=== PATIENT | female | born 1985 | race Asian ===

== ENCOUNTER 2020-12-05 15:55 | Emergency (ER) | payer SELFPAY ==
[~2020-12-05] VITALS: Ht 162.6 cm; Wt 66.0 kg
[2020-12-05] MEDS ORDERED: SODIUM CHLORIDE 0.9% 1,000 ML IV ONE (18:30)
[2020-12-05 19:04] LABS: *AMPHETAMINES SCREEN URINE NEGATIVE (NEGATIVE); *BARBITURATES SCREEN URINE NEGATIVE (NEGATIVE); OPIATES URINE SCREEN NEGATIVE (NEGATIVE); PHENCYCLIDINE URINE SCREEN NEGATIVE (NEGATIVE)
[2020-12-05 19:06] LABS: *BENZODIAZEPINES SCREEN URINE NEGATIVE (NEGATIVE); *COCAINE SCREEN URINE NEGATIVE (NEGATIVE); CANNABINOID URINE SCREEN NEGATIVE (NEGATIVE); METHADONE URINE SCREEN NEGATIVE (NEGATIVE)
[2020-12-05 19:17] LABS: BASOPHILS % 0.7 % (0.0-2.0); EOSINOPHILS % 0.5 % (0.0-5.0); HEMOGLOBIN. 12.8 g/dL (12.0-16.0); LYMPHOCYTES % 34.9 % (20.0-50.0); MEAN CORPUSCULAR VOLUME 89.4 fL (81.0-99.0); MONOCYTES % 4.5 % (2.0-8.0); NEUTROPHILS % 59.4 % (40.0-76.0); PLATELET 246 x1000/uL (130-400); RED BLOOD CELL COUNT 4.25 mill/uL (4.2-5.4); RED CELL DISTRIBUTION WIDTH 14.5 % (11.6-14.6)
[2020-12-05 19:24] LABS: CHLORIDE 110 mEq/L (98-107); HCG SCREEN NEGATIVE
[2020-12-05 19:38] LABS: ETHANOL BLOOD 353 mg/dL
[2020-12-05 20:00] VITALS: BP 116/74
== END 2020-12-05 20:45 | disposition home or self-care (01) ==
LOC: ER 15:55
DX: F10.129 Alcohol abuse with intoxication, unspecified (principal); Y90.8 Blood alcohol level of 240 mg/100 ml or more; Z59.0 Homelessness
CPT/HCPCS: 36415; 80053; 80305; 80320; 84703; 85025; 99283; J7030; Z7610; G0480

== ENCOUNTER 2022-04-02 18:13 | Emergency (ER) | payer BC ==
[~2022-04-02] VITALS: Ht 160 cm; Wt 63.0 kg
[2022-04-02] MEDS ORDERED: SODIUM CHLORIDE 0.9% 1,000 ML IV ONE (18:30)
[2022-04-02 19:03] LABS: BASOPHILS % 2.2 % (0.0-2.0); EOSINOPHILS % 6.4 % (0.0-5.0); HEMATOCRIT. 39.8 % (36.0-48.0); HEMOGLOBIN. 13.2 g/dL (12.0-16.0); LYMPHOCYTES % 46.2 % (20.0-50.0); MEAN CORPUSCULAR HEMOGLOBIN 29.7 pg (28.0-32.0); MEAN CORPUSCULAR VOLUME 89.7 fL (81.0-99.0); MEAN PLATELET VOLUME 8.2 fl (7.4-10.4); MONOCYTES % 10.9 % (2.0-8.0); NEUTROPHILS % 34.3 % (40.0-76.0); PLATELET 318 x1000/uL (130-400); RED BLOOD CELL COUNT 4.43 mill/uL (4.2-5.4)
[2022-04-02 19:04] LABS: CHLORIDE 105 mEq/L (98-107)
[2022-04-02 19:11] LABS: HCG SCREEN NEGATIVE
[2022-04-02 19:15] LABS: CREATINE KINASE 170 IU/L (26-192)
[2022-04-02 19:25] LABS: ETHANOL BLOOD 478 mg/dL
[2022-04-02] MEDS ORDERED: ONDA4TAB50 MT (20:07)
[2022-04-02 20:30] VITALS: BP 135/77
== END 2022-04-02 20:30 | disposition home or self-care (01) ==
LOC: ER 18:13
DX: F10.129 Alcohol abuse with intoxication, unspecified (principal); Y90.8 Blood alcohol level of 240 mg/100 ml or more; T51.0X1A Toxic effect of ethanol, accidental (unintentional), initial encounter; Y92.89 Other specified places as the place of occurrence of the external cause
CPT/HCPCS: 36415; 70450; 71045; 80053; 80307; 80320; 80329; 82550; 84703; 85025; 93005; 96360; 99285; J7030; G0480